=== PATIENT | female | born 1970 | race Caucasian/White ===

== ENCOUNTER 2017-10-05 17:23 | Emergency (ER) | payer MEDICAID ==
[2017-10-05] MEDS ORDERED: Ondansetron 4 MG/2 ML SDV IVPUSH ONE (18:40)
[2017-10-05] MEDS ORDERED: Sodium Chloride 0.9% 1,000 ML IV ONE (18:41)
--- NOTE | 2017-10-05 18:47 | EDM.PDOC ---
ED HPI GENERAL MEDICAL PROBLEM - General Chief Complaint: General Stated Complaint: NOT FEELING WELL Time Seen by Provider: 10/05/17 17:23 Source of Information: Reports: Patient History Limitations: Reports: No Limitations - History of Present Illness INITIAL COMMENTS - FREE TEXT/NARRATIVE: 46 y.o.w.f came to the ed because of waekness, N/V. epigastric pain.Pt was seen in the the clinic and sent to the ED. Some lab tests were not normal (?) Pt is a poor historian, no family is present 158/81 pulse 76 RR 18 Pulse ox 98% on RA Onset Date: 10/05/17 Onset Time: 14:00 Duration: Hour(s): Location: Reports: Generalized Quality: Reports: Ache, Other (gen b) Severity: Moderate Improves with: Reports: Rest Worsens with: Reports: Movement Context: Reports: Other (pt was seen in the clinc. Lab test were not normal) Generalized Pain Score (Numeric/FACES): 4 - Related Data Allergies Allergy/AdvReac Type Severity Reaction Status Date / Time bupropion HCl Allergy Hives Verified 10/05/17 18:10 [From Wellbutrin] cefadroxil hydrate Allergy Hives Verified 10/05/17 18:10 [From Duricef] cephalexin [Cephalexin] Allergy Hives Verified 10/05/17 18:10 heparin Allergy Cannot Verified 10/05/17 18:10 Remember nitrofurantoin Allergy Hives Verified 10/05/17 18:10 macrocrystalline [From Macrodantin] ofloxacin [From Floxin] Allergy Hives Verified 10/05/17 18:10 Penicillins Allergy Hives Verified 10/05/17 18:10 sertraline Allergy Hives Verified 10/05/17 18:10 Sulfa (Sulfonamide Allergy Hives Verified 10/05/17 18:10 Antibiotics) Home Meds: Home Meds Ca Cmb No.1/Vit D3/B-6/FA/B12 [Vitamin D3 1,000 Unit] 1 tab PO DAILY 01/24/14 [ History] Cyanocobalamin (Vitamin B-12) [B-12] 500 mcg PO DAILY 01/24/14 [History] Fluticasone Propionate [Flonase] 2 spray NASBOTH DAILY 01/24/14 [History] Folic Acid 4 mg PO DAILY 01/24/14 [History] Gabapentin 300 mg PO BID 01/24/14 [History] Levothyroxine 50 mcg PO DAILY 01/24/14 [History] Albuterol Sulfate [Proair Hfa] 8.5 gm IH ASDIRECTED PRN 01/30/15 [History] Warfarin Sodium [Jantoven] 7.5 mg PO DAILY 01/30/15 [History] ARIPiprazole [Abilify] 5 mg PO DAILY 07/21/15 [History] Ascorbate Calcium [Vitamin C] 500 mg PO DAILY 07/21/15 [History] Calcium Carbonate/Vitamin D3 [Calcium 600 + D Tablet] 2 tab PO DAILY 07/21/15 [ History] Cholecalciferol (Vitamin D3) [Vitamin D3] 1,000 unit PO BID 07/21/15 [History] Ferrous Sulfate 325 mg PO DAILY 07/21/15 [History] Gabapentin [Neurontin] 400 mg PO BID 07/21/15 [History] Lansoprazole [Prevacid] 30 mg PO DAILY 07/21/15 [History] Lisinopril 20 mg PO DAILY 07/21/15 [History] Magnesium Gluconate [Magonate] 500 mg PO TID 07/21/15 [History] Ondansetron [Zofran] 4 - 8 mg PO ASDIRECTED PRN 07/21/15 [History] Venlafaxine HCl [Venlafaxine ER] 225 mg PO DAILY 07/21/15 [History] hydrOXYzine Pamoate [Vistaril] 25 mg PO QID 07/21/15 [History] Past Medical History Other Cardiovascular History: splenic aneurysm Social & Family History - Tobacco Use Smoking Status *Q: Current Every Day Smoker Years of Tobacco use: 20 Packs/Tins Daily: 1.5 Used Tobacco, but Quit: No Month Tobacco Last Used: today Second Hand Smoke Exposure: No - Alcohol Use Days Per Week of Alcohol Use: 0 - Recreational Drug Use Recreational Drug Use: No Drug Use in Last 12 Months: No ED ROS GENERAL - Review of Systems Review Of Systems: See Below Constitutional: Reports: No Symptoms HEENT: Reports: No Symptoms Respiratory: Reports: No Symptoms Cardiovascular: Reports: No Symptoms Endocrine: Reports: No Symptoms GI/Abdominal: Reports: No Symptoms : Reports: No Symptoms Musculoskeletal: Reports: Muscle Pain Skin: Reports: No Symptoms Neurological: Reports: No Symptoms Psychiatric: Reports: No Symptoms Hematologic/Lymphatic: Reports: No Symptoms Immunologic: Reports: No Symptoms ED EXAM, GENERAL - Physical Exam Exam: See Below Exam Limited By: Physical Impairment General Appearance: Alert, WD/WN, Obese Eye Exam: Bilateral Eye: Normal Inspection Ears: Normal External Exam Ear Exam: Bilateral Ear: Auricle Normal Nose: Normal Inspection, Other (dry mucosal membrane) Throat/Mouth: Other (dry mucosal membrane) Head: Atraumatic, Normocephalic Neck: Normal Inspection, Supple, Non-Tender Respiratory/Chest: No Respiratory Distress, Lungs Clear Peripheral Pulses: 1+: Radial (L) GI/Abdominal: Normal Bowel Sounds, Soft, Non-Tender, No Organomegaly (Female) Exam: Deferred Rectal (Female) Exam: Deferred Back Exam: Normal Inspection, Full Range of Motion Extremities: Normal Inspection, Normal Range of Motion, Non-Tender, No Pedal Edema Neurological: Alert, Oriented, CN II-XII Intact, Normal Cognition, Normal Gait Psychiatric: Normal Affect Skin Exam: Warm, Dry Lymphatic: No Adenopathy Course - Vital Signs Text/Narrative:: 46 y.o.w.f came to the ed because of waekness, N/V. epigastric pain.Pt was seen in the the clinic and sent to the ED. Some lab tests were not normal (?) Pt is a poor historian, no family is present 158/81 pulse 76 RR 18 Pulse ox 98% on RA PE: Gen body ache, dry mucosal membranem petechia lower extremities Labs: Pending Impression: Weakness, N/V. Petechia lower extremities Signed out to Dt. Webb at 7 pm due to shift change, pending Labs and Tx Last Recorded V/S: Last Vital Signs Temp 36.5 C 10/05/17 21:10 Pulse 82 10/05/17 21:10 Resp 17 10/05/17 21:10 BP 151/76 H 10/05/17 21:10 Pulse Ox 100 10/05/17 21:10 - Orders/Labs/Meds Labs: Laboratory Tests 10/05/17 10/05/17 10/05/17 Range/Units 18:50 18:50 18:50 WBC 8.6 (4.5-12.0) X10-3/uL RBC 3.79 (3.23-5.20) x10(6)uL Hgb 11.6 (11.5-15.5) g/dL Hct 32.8 (30.0-51.3) % MCV 86.5 (80-96) fL MCH 30.7 (27.7-33.6) pg MCHC 35.5 H (32.2-35.4) g/dL RDW 13.3 (11.5-15.5) % Plt Count 273 (125-369) X10(3)uL MPV 9.3 (7.4-10.4) fL Neut % (Auto) 60.5 (46-82) % Lymph % (Auto) 20.0 (13-37) % [place] % (Auto) 12.4 H (4-12) % Eos % (Auto) 3 (1.0-5.0) % Baso % (Auto) 5 H (0-2) % Neut # (Auto) 5.2 (1.6-8.3) # Lymph # (Auto) 1.7 (0.6-5.0) # [place] # (Auto) 1.1 (0.0-1.3) # Eos # (Auto) 0.2 (0.0-0.8) # Baso # (Auto) 0.4 H (0.0-0.2) # PT 10.6 (8.7-11.1) INR 1.05 (0.89-1.13) Sodium 129 L (135-145) mmol/L Potassium 4.0 (3.5-5.3) mmol/L Chloride 97 L (100-110) mmol/L Carbon Dioxide 23 (21-32) mmol/L BUN 10 (7-18) mg/dL Creatinine 2.1 H* (0.55-1.02) mg/dL Est Cr Clr Drug Dosing 28.00 mL/min Estimated GFR (MDRD) 25 L (>60) BUN/Creatinine Ratio 4.8 L (9-20) Glucose 95 (80-116) mg/dL Calcium 8.5 L (8.6-10.2) mg/dL Meds: Medications Discontinued Medications Generic Name Dose Route Start Last Admin Trade Name Freq PRN Reason Stop Dose Admin Sodium Chloride 1,000 mls @ 999 mls/hr 10/05/17 18:41 10/05/17 20:01 Normal Saline IV 01/03/18 19:41 999 mls/hr .BOLUS ONE Administration Ondansetron HCl 8 mg 10/05/17 18:40 10/05/17 20:06 Zofran IVPUSH 10/05/17 18:41 8 mg ONETIME ONE Administration Pantoprazole Sodium 40 mg 10/05/17 18:40 10/05/17 20:15 Protonix Iv IVPUSH 10/05/17 18:41 Not Given ONETIME ONE Sodium Chloride 10 ml 10/05/17 19:04 10/05/17 19:59 Saline Flush FLUSH 10 ml ASDIRECTED PRN Administration Keep Vein Open Departure - Departure Time of Disposition: 20:00 Disposition: Home, Self-Care 01 Condition: Good Clinical Impression: Dehydration - Discharge Information Instructions: Acute Kidney Injury Referrals: Angy Guerra, [facility] [Primary Care Provider] - (1-2 days) Forms: ED Department Discharge Additional Instructions: Hold Lisinopril until seen by Angy.
[2017-10-05] MEDS ORDERED: Sodium Chloride 0.9% 10 ML Syringe FLUSH PRN (19:04)
[2017-10-05] MEDS: Pantoprazole 40 MG Vial IVPUSH ONE ×2 (20:13→20:15)
[2017-10-05 21:13] VITALS: BP 151/76
--- NOTE | 2017-10-06 03:51 | ER ---
DATE SEEN: 10/05/2017 CHIEF COMPLAINT: Renal failure. HISTORY OF PRESENT ILLNESS: This is a 46-year-old female who has had problems with nausea and vomiting over the last 2 months, weakness and also fullness. She saw Ida Blackburn today at the clinic and CMP revealed a creatinine of 1.76 and sodium of 125. She came in for fluids and further treatment. Repeat lab here revealed sodium was 129, creatinine is 2.1. I reviewed back her labs to November and the kidney function was normal at that time. PAST MEDICAL HISTORY: She has multiple medical problems that include generalized anxiety, history of alcohol dependence, hypertension, substance abuse, thyroid disease, COPD, depression. Medications and allergies were reviewed. MEDICATIONS: She is on several medications includin. EFREM inhibitor. 2. Lisinopril. ALLERGIES: She has several allergies. Please see the nurse's notes and the electronic record for a complete list. REVIEW OF SYSTEMS: She also complains she lost weight over the last few days, but denies any fever or chills. PHYSICAL EXAMINATION: VITAL SIGNS: Her blood pressure today is normal and she is afebrile. Her pulse is 84, temperature 97.2. EARS, NOSE, AND THROAT: Negative. NECK: Supple. CARDIOVASCULAR: Normal. ABDOMEN: Soft and benign. LABS: As mentioned above. Creatinine was 2.1. FINAL IMPRESSION: 1. Dehydration. 2. Acute kidney injury. 3. Hypertension. PLAN: One liter of normal saline was given. The patient improved. I discharged her home. I advised to hold on lisinopril. I would like her to see Angy Guerra tomorrow for repeat lab. Return to the ED with any worsening symptoms. TIME SEEN: 2100 hours. /[id number] ILDA/BKL
== END 2017-10-05 21:10 | disposition home or self-care (01) ==
LOC: FB.ED 17:23
DX: N17.9 Acute kidney failure, unspecified (principal); E86.0 Dehydration; I10 Essential (primary) hypertension; F17.210 Nicotine dependence, cigarettes, uncomplicated; Z88.8 Allergy status to other drugs, medicaments and biological substances; Z79.899 Other long term (current) drug therapy; Z88.2 Allergy status to sulfonamides; Z88.0 Allergy status to penicillin
CPT/HCPCS: 36415; 80048; 85025; 85610; 96361; 96374; 96375; 99283; C9113; J2405; J7040; J7050